=== PATIENT | female | born 1980 | race Caucasian/White ===

== ENCOUNTER 2018-08-07 22:25 | Emergency (ER) | payer SELFPAY ==
[~2018-08-07] VITALS: Ht 152.4 cm; Wt 53.8 kg
[2018-08-07 22:33] VITALS: BP 121/68; PULSE 70; RESP 18; Ht 152.4 cm; Wt 53.8 kg
== END 2018-08-08 00:14 | disposition left against medical advice (07) ==
LOC: FTE 22:25
DX: Z53.21 Procedure and treatment not carried out due to patient leaving prior to being seen by health care provider (principal)